=== PATIENT | female | born 1990 | race Caucasian/White ===

== ENCOUNTER → 2022-01-14 | Outpatient (CLI) | payer BC ==
[~2022-01-14] MED LIST: CATHETER FLUSH 10 ML SYR IV PRN; HOLD METFORMIN - RECEIVED CONTRAST 20 ML VIAL IV SCH; IOHEXOL 350 MG/ML 100 ML (OMNIPAQUE 350) VIAL IV ONE; NS 100 ML (IVPB) BAG IV ONE
--- NOTE | 2022-01-14 12:22 | Diagnostic Imaging Report ---
PROCEDURE: CT abdomen and pelvis with contrast. TECHNIQUE: Multiple contiguous axial images were obtained through the abdomen and pelvis after administration of intravenous contrast. Auto Exposure Controls were utilized during the CT exam to meet ALARA standards for radiation dose reduction. All CT scans use one or more of the following dose optimizing techniques: automated exposure control, MA and/or KvP adjustment based on patient size and exam type or iterative reconstruction. INDICATION: Abdominal pain with elevated lipase No focal hepatic, gallbladder, pancreatic or adrenal gland abnormality is identified. Spleen and kidneys are also unremarkable without evidence of mass or hydronephrosis. No peripancreatic inflammation or pancreatic ductal dilatation is identified. There is no evidence of free fluid within the abdomen or pelvis. No focal inflammation or organized fluid collection is seen. The appendix has a normal appearance. Urinary bladder is decompressed but otherwise unremarkable in appearance. IMPRESSION: No CT evidence of acute abdominal or pelvic abnormality. Dictated by: Dictated on workstation # [id number]
== END ==
LOC: RAD FS 11:39
PROVIDERS: ATTEND Nurse Practitioner Family
DX: D72.829 Elevated white blood cell count, unspecified (principal); R74.8 Abnormal levels of other serum enzymes
CPT/HCPCS: 74177